=== PATIENT | male | born 1950 | race Caucasian/White ===

== ENCOUNTER 2016-12-07 10:14 | Day surgery (SDC) | payer MEDICARE ==
--- NOTE | ~2016-12-07 | EGD ---
EGD REPORT [facility] [address] [id number] NAME: QUINN BOUCHER : [birth year] STATUS : REG [facility]#: [id number] AGE: 66 ADM/REG DATE : 12/07/16 MR#: [id number] REPORT SERV DATE: 12/07/16 DICTATED BY: MINI ARREDONDO DATE: 12/07/16 REPORT STATUS : Draft [facility]ANS[facility]IBED BY: [facility] DATE: 12/07/16 Pulmonology Patient Name: Quinn Boucher Procedure Date: 12/07/2016 3:36 PM Date of : 1950 Attending MD: DIVINE ARREDONDO MD Procedure Date No Time: 12/07/2016 Procedure: EBUS Indications: LAMBERT lung mass, mediastinal adenopathy Providers: DIVINE ARREDONDO MD Referring MD: ANGEL DIAZ Medicines: Lidocaine 2% 20 mL Complications: No immediate complications Procedure: Pre-Anesthesia Assessment: - ASA Grade Assessment: III - A patient with severe systemic disease. - A History and Physical has been performed. Patient meds and allergies have been reviewed. The risks and benefits of the procedure and the sedation options and risks were discussed with the patient. All questions were answered and informed consent was obtained. Patient identification and proposed procedure were verified prior to the procedure by the physician and the nurse in the procedure room. Mental Status Examination: normal. Airway Examination: normal oropharyngeal airway. Respiratory Examination: poor air movement. CV Examination: normal and RRR, no murmurs, no S3 or S4. ASA Grade Assessment: IV - A patient with severe systemic disease that is a constant threat to life. After reviewing the risks and benefits, the patient was deemed in satisfactory condition to undergo the procedure. The anesthesia plan was to use general anesthesia. Immediately prior to administration of medications, the patient was re-assessed for adequacy to receive sedatives. The heart rate, respiratory rate, oxygen saturations, blood pressure, adequacy of pulmonary ventilation, and response to care were monitored throughout the procedure. The physical status of the patient was re-assessed after the procedure. After obtaining informed consent, the BF [id number] was introduced through the mouth, via the endotracheal tube (the patient was intubated for the procedure) and advanced to the tracheobronchial tree. The Bronchoscope was introduced through the mouth, via the endotracheal tube (the patient was intubated for the procedure) and advanced to the tracheobronchial tree. The procedure EGD REPORT [address] [address] NAME: QUINN BOUCHER : [birth year] STATUS : REG [facility]#: [id number] AGE: 66 ADM/REG DATE : 12/07/16 MR#: [id number] REPORT SERV DATE: 12/07/16 DICTATED BY: MINI ARREDONDO DATE: 12/07/16 REPORT STATUS : Draft TRANSCRIBED BY: [facility] DATE: 12/07/16 was accomplished without difficulty. The patient tolerated the procedure well. Findings: The endotracheal tube is in good position. The visualized portion of the trachea is of normal caliber. The morales is sharp. The tracheobronchial tree was examined to at least the first subsegmental level. LAMBERT endobronchial tumor noted. Brushings were obtained in the left upper lobe of the lung and sent for routine cytology. One sample was obtained. Endobronchial biopsies were performed in the left upper lobe of the lung using a forceps and sent for histopathology examination. Five samples were obtained. Balloon bronchoplasty was performed with a lalita balloon number 5 without significant improvement in aeration of the LAMBERT. Bronchoalveolar lavage was performed in the left upper lobe of the lung and sent for routine cytology. 60 mL of fluid were instilled. 20 mL were returned. The return was cellular. EBUS TBNA of lymph node level 7 x 6 passes for cytology The FiO2 was lowered to less than 40% and argon plasma coagulation therapy (0.8 L/min, 15 Baxter) was performed for destruction of tissue. 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 LAMBERT tumor was debulked but unable to salvage the LAMBERT subsegments. No stent indicated. Recommendation: - Await test results. - MRI of the brain with and without contrast - Consult Medical Oncology, Dr. Jorge Madrigal Attending Participation: I personally performed the entire procedure. DIVINE ARREDONDO MD 12/07/2016 4:35 PM This report has been signed electronically. Number of Addenda: 0 Note Initiated On: 12/07/2016 3:36 PM [address] [id number]
[~2016-12-07 10:14] MED LIST: C5 PO; GLUCOPHAGE1000 MG PO; HUMALOG SC; LAN125 PO; LEVOTHYROXIN137 MCG PO; LOP50 PO; PRAVACHOL40 MG PO; PROAIR HFA INH
[2016-12-07 10:37] LABS: BASOPHILS 0.7 %; BASOPHILS ABSOLUTE 0.07 10/3/uL (0.0-0.16); EOSINOPHILS 3.5 %; EOSINOPHILS ABSOLUTE 0.35 10/3/uL (0.0-0.53); HEMATOCRIT 41.2 % (40.0-51.0); HEMOGLOBIN 14.1 g/dL (13.6-17.8); IMMATURE GRANULOCYTES 0.2 %; IMMATURE GRANULOCYTES ABSOLUTE 0.02 10/3/uL (0.0-0.11); LYMPHOCYTES 24.2 %; LYMPHOCYTES ABSOLUTE 2.39 10/3/uL (0.67-4.30); MEAN CORPUS HGB CONC 34.2 g/dL (32.0-36.0); MEAN CORPUSCULAR HEMOGLOB 27.9 pg (26.0-34.0); MEAN CORPUSCULAR VOLUME 81.6 fL (80-100); MEAN PLATELET VOLUME 9.6 fL (9.2-13.0); MONOCYTES 7.9 %; MONOCYTES ABSOLUTE 0.78 10/3/uL (0.21-1.20); NEUTROPHILS 63.5 %; NEUTROPHILS ABSOLUTE 6.26 10/3/uL (2.02-8.40); PLATELET COUNT 250 10/3/uL (150-400); RBC DISTRIBUTION WIDTH 13.7 % (12.0-16.0); RED CELL COUNT 5.05 10/6/uL (4.7-6.1); WHITE BLOOD CELLS 9.9 10/3/uL (4.5-10.5)
[2016-12-07 10:43] LABS: MANUAL DIFF NO %
[2016-12-07 10:44] LABS: INTERNATIONAL NORMAL RATI 1.1 UNITS (-); PARTIAL THROMBO TIME 25.2 SEC (22.5-37.2); PROTIME (NOT ORD) 13.6 SEC (12.0-14.5)
[2016-12-07 10:47] LABS: BUN (BLOOD UREA NITROGEN) 6 MG/DL (6-23); CALCIUM, SERUM 8.8 MG/DL (8.5-10.4); CHLORIDE, SERUM 102 MMOL/L (96-112); CO2 (CARBON DIOXIDE) 29 MMOL/L (24-34); CREATININE 0.93 MG/DL (0.70-1.30); GFR AFRICAN AMERICAN 100 ML/MIN (>=60); GFR NON AFRICAN AMERICAN 86 ML/MIN (>=60); GLUCOSE, SERUM 253 MG/DL (60-99); POTASSIUM, SERUM 4.3 MMOL/L (3.5-5.3); SODIUM, SERUM 139 MMOL/L (135-148)
== END 2016-12-07 18:34 | disposition home or self-care (01) ==
LOC: DMU 10:14
PROVIDERS: Anesthesiology; Internal Medicine
PROC: 0B5G8ZZ Destruction of Left Upper Lung Lobe, Via Natural or Artificial Opening Endoscopic (ICD-10-PCS; 2016-12-07)
PROC: 0BB88ZX Excision of Left Upper Lobe Bronchus, Via Natural or Artificial Opening Endoscopic, Diagnostic (ICD-10-PCS; principal; 2016-12-07 12:30)
PROC: 0B7 Respiratory System, Dilation (ICD-10-PCS; 2016-12-07 12:30)
PROC: 0B988ZX Drainage of Left Upper Lobe Bronchus, Via Natural or Artificial Opening Endoscopic, Diagnostic (ICD-10-PCS; 2016-12-07 12:30)
PROC: 07974ZX Drainage of Thorax Lymphatic, Percutaneous Endoscopic Approach, Diagnostic (ICD-10-PCS; 2016-12-07 12:30)
PROC: BB4CZZZ Ultrasonography of Mediastinum (ICD-10-PCS; 2016-12-07 12:30)
DX: C34.12 Malignant neoplasm of upper lobe, left bronchus or lung (principal); C77.1 Secondary and unspecified malignant neoplasm of intrathoracic lymph nodes; J44.9 Chronic obstructive pulmonary disease, unspecified; I48.91 Unspecified atrial fibrillation; I10 Essential (primary) hypertension; M19.90 Unspecified osteoarthritis, unspecified site; D86.9 Sarcoidosis, unspecified; E11.9 Type 2 diabetes mellitus without complications; E05.00 Thyrotoxicosis with diffuse goiter without thyrotoxic crisis or storm; E78.00 Pure hypercholesterolemia, unspecified; E66.01 Morbid (severe) obesity due to excess calories; Z68.34 Body mass index [BMI] 34.0-34.9, adult; Z88.5 Allergy status to narcotic agent; Z91.048 Other nonmedicinal substance allergy status; Z79.4 Long term (current) use of insulin; Z79.84 Long term (current) use of oral hypoglycemic drugs; Z79.01 Long term (current) use of anticoagulants; Z79.899 Other long term (current) drug therapy; Z87.891 Personal history of nicotine dependence; Z98.890 Other specified postprocedural states
CPT/HCPCS: 71010; 80048; 82962; 85025; 85610; 85730; 88112; 88173; 88305; 88333; 93005; A9270-GY; C1725; C1757; J2250; J2405; J3010